=== PATIENT | male | born 1975 | race Caucasian/White ===

== ENCOUNTER 2020-10-30 17:31 | Inpatient (IN) | payer OTHER ==
[~2020-10-30] VITALS: Ht 172.7 cm; Wt 108.9 kg
[2020-10-30 17:38] VITALS: BP 167/11; BP 167/115
[2020-10-30 17:59] LABS: ABSOLUTE EOSINOPHILS 0.1 thou/uL (0.0-0.7); ABSOLUTE LYMPHOCYTES 3.7 thou/uL (0.8-5.3); ABSOLUTE MONOCYTES 1.4 thou/uL (0.0-1.2); ABSOLUTE NEUTROPHILS 7.7 thou/uL (1.6-8.1); BASOPHILS 0.4 %; EOSINOPHILS 0.6 %; HEMATOCRIT 37.8 % (42.0-52.0); HEMOGLOBIN 13.2 gm/dL (14.0-18.0); LYMPHOCYTES 28.7 %; MCH 31.5 pg (26.0-34.0); MCHC 34.9 g/dL (28.0-37.0); MCV 90.2 fL (80.0-100.0); MONOCYTES 10.8 %; MPV 8.2 fl. (7.2-11.1); NUCLEATED RBCS 0 /100WBC; PLATELET COUNT* 281 thou/uL (150-400); POLYS 59.5 %; RBC 4.19 mil/uL (4.50-6.00); WBC 12.9 thou/uL (4.0-11.0)
[2020-10-30 18:12] LABS: APTT 23.1 Seconds (25.0-31.3); CALCIUM 7.9 mg/dL (8.5-10.1); CREATININE 1.5 mg/dL (0.6-1.3); PROTIME 10.3 Seconds (9.20-11.50)
[2020-10-30 18:13] LABS: POTASSIUM 2.6 mmol/L (3.5-5.1)
[2020-10-30 18:17] LABS: ALBUMIN 3.2 g/dL (3.4-5.0); TOTAL BILIRUBIN 0.3 mg/dL (<0.1-1.0); TOTAL PROTEIN 6.2 g/dL (6.4-8.2)
[2020-10-31 00:30] VITALS: BP 195/94
[2020-10-31 03:15] LABS: HEMATOCRIT 29.5 % (42.0-52.0); MCH 31.5 pg (26.0-34.0); MPV 7.5 fl. (7.2-11.1); RBC 3.28 mil/uL (4.50-6.00); RDW-CV 13.5 % (10.5-14.5); WBC 10.1 thou/uL (4.0-11.0)
[2020-10-31 03:16] LABS: HEMOGLOBIN 10.3 gm/dL (14.0-18.0)
[2020-10-31 03:28] LABS: CALCIUM 7.7 mg/dL (8.5-10.1); CREATININE 1.4 mg/dL (0.6-1.3); POTASSIUM 3.3 mmol/L (3.5-5.1)
[2020-10-31 04:30] VITALS: BP 193/106
[2020-10-31 05:32] LABS: URINE BILIRUBIN NEGATIVE (Negative); URINE BLOOD NEGATIVE (Negative); URINE CLARITY CLEAR; URINE COLOR YELLOW; URINE GLUCOSE-RANDOM NEGATIVE (Negative); URINE KETONES NEGATIVE (Negative); URINE LEUKOCYTES-REFLEX NEGATIVE (Negative); URINE NITRITE-REFLEX NEGATIVE (Negative); URINE PROTEIN 2+ (Negative); URINE SPECIFIC GRAVITY 1.025 (1.005-1.030); URINE UROBILINOGEN 0.2 E.U./dl (0.2-1.0)
[2020-10-31 06:13] LABS: AMORPHOUS URATES Few /LPF (None Seen); BACTERIA-REFLEX 1-9 Few /HPF (None Seen); HYALINE CASTS 4-10 Moderate /LPF (None Seen); MUCUS 0-3 Light strn/LPF (None Seen); SQUAMOUS 0-3 Few /LPF (0-3); URINE RBC 0-2 Rare /HPF (0-2); URINE WBC-REFLEX 0-5 Rare /HPF (0-5)
[2020-10-31 08:30] VITALS: BP 153/70
[2020-10-31 12:34] VITALS: BP 187/102
[2020-11-01 04:06] LABS: GLYCOHEMOGLOBIN (HGB A1C) 6.5 % (4.8-5.6)
--- NOTE | 2020-11-01 15:03 | EKG ---
[place] [address] ELECTROCARDIOGRAM REPORT Name: SHAILESH CALDERON Room: [address] IN [facility]#: [id number] Admission: 10/30/20 Attend Phys: Jose Kaiser Discharge: 10/31/20 Date of : 77 Date of Service: 10/30/20 174 Report #: [id number] THIS REPORT FOR: //name// [facility] ED Test Date: 2020-10-30 Test Time: 17:42:53 Pat Name: SHAILESH RUEDAAUSTEN Department: Room: [facility] Gender: M Manager Service Desk: MAGDALENA : 1975 Requested By: Ashlee Hollins Order Number: [id number] MD: Ronan Santiago Measurements Intervals [place] Rate: 73 P: 42 DE: 162 QRS: 23 QRSD: 110 T: 114 QT: 443 QTc: 489 Interpretive Statements Sinus rhythm Possible left atrial enlargement Repol abnrm suggests ischemia, lateral leads No previous ECG available for comparison Electronically Signed On 11-01-2020 15:03:16 ARCHITECTURAL MODELER by Ronan Santiago [email or web address] <ELECTRONICALLY SIGNED> By: Ronan Santiago MD, FAC 11/01/20 1503 1742 1742 Ronan Santiago MD, FAC /EPI
--- NOTE | 2020-11-03 19:30 | CON ---
[address] [address] CONSULTATION Name: SHAILESH CALDERON Room: [address] IN .[place].#: [id number] Admission: 10/30/20 Attend Phys: Lisbet Roland Discharge: 10/31/20 Date of : 77 Report #: [id number] THIS REPORT FOR: cc: FAM - No family physician/PCP FAM - No family physician/PCP ~ Wilfred Graff DO DATE OF SERVICE: 10/31/2020 GI CONSULTATION REFERRING PHYSICIAN: Anita Og MD REASON FOR CONSULTATION: Rectal bleeding. IMPRESSION: 1. Acute onset of overt hematochezia with abnormal CAT scan demonstrating colitis. 2. Chronic acid reflux. 3. Chronic hoarseness. 4. Elevated troponin of uncertain etiology with multiple risk factors for heart disease including uncontrolled hypertension, chronic tobacco use, obesity, probable diabetes, and family history of heart disease. 5. Fatty liver noted on CT scan secondary to obesity. RECOMMENDATIONS: 1. I have discussed with the patient the need for him to come into the hospital to get IV fluids and hydration. 2. He will also need to be seen by Cardiology to clear him because of his elevated troponin before consideration for endoscopic evaluation of his upper and lower GI tract. 3. If Cardiology gives us clearance for the same, we can proceed with bowel preparation and endoscopic evaluation of his upper and lower GI tract in the next 24-36 hours. I have discussed these plans with the patient as well and he is not sure that he wants to stay in the hospital. I told him that if he decided to leave, he would have to do this, he would be leaving AMA, as I do not recommend him to get this done as an outpatient given the severity of his complaints plus his anemia (hemoglobin of 10) plus elevated troponin with a need for cardiovascular evaluation. I am waiting for him to decide what he wants to do. HISTORY OF PRESENT ILLNESS: The patient is a very pleasant 45-year-old white male who really has no primary care provider, nor does he see a doctor on a regular basis, admitted number of years since the same, who presented to the emergency room with complaints of rectal bleeding, [place] [address] CONSULTATION Name: SHAILESH CALDERON Room: [address]#: [id number] Admission: 10/30/20 Attend Phys: Lisbet Roland Discharge: 10/31/20 Date of : 77 Report #: [id number] afternoon. He felt like he needs to go the bathroom and he went and had had bright red blood. He also had some episodes where he got lightheaded and dizzy and almost passed out. His or significant other said that he had abnormal seizure-like activity with almost loss of consciousness while he was on the toilet. He denied any complaints of any abdominal pain with this. He does not normally have any problem with his bowels or bowel frequency. He states he normally goes to the bathroom on a regular basis. He has no known family history of any forms of colitis. He has no family history of inflammatory bowel disease, colon polyps or colon cancer. He has never undergone previous studies of the same. He does have chronic gastro reflux, but not taking anything on a regular basis. He also has a very hoarse voice. With all these issues, he denied any complaints of any chest discomfort or chest pain. He does not have any exertional chest pain or dyspnea on exertion. 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 He does, however, have multiple risk factors for heart disease including uncontrolled hypertension, probable diabetes, probable hyperlipidemia and family history of heart disease with chronic tobacco use in excess of 2 packs a day. ALLERGIES: None. MEDICATIONS AT HOME: Include aspirin and Tylenol. He sometimes takes nonsteroidals. He has no prescription medications. PAST MEDICAL HISTORY: Significant for previous ankle injury for which he has had surgery for the same. He has otherwise not had any surgery. He has not had any followup with any primary care doctor for a number of years. SOCIAL HISTORY: The patient smokes in excess of 2 packs a day; drinks "too much alcohol," but he did not quantify. He denies any drug use. PHYSICAL EXAMINATION: GENERAL: Pleasant 45-year-old gentleman who is awake and alert. CARDIOPULMONARY: Revealed a regular rate and rhythm. LUNGS: Clear. ABDOMEN: Soft and not tender. No rebound or guarding noted. VITAL SIGNS: His blood pressure is 172/95, pulse is 81, respirations are 17, and temperature is noted 36.8. LABORATORY DATA: His laboratory tests from admission revealed a white count of 12.9, hemoglobin 13.2, platelet count of 281,000. This was yesterday afternoon at 1741. This morning at 3:00 a.m., with hydration, [place] [address] CONSULTATION Name: SHAILESH CALDERON Room: [address] IN [place].#: [id number] Admission: 10/30/20 Attend Phys: Lisbet Roland Discharge: 10/31/20 Date of : 77 Report #: [id number] down to 10.3 with a white count of 10.1 and platelet count of 170,000. His sodium is 138, potassium 3.3, chloride 104, bicarbonate is 27, his BUN is 14, creatinine 1.4. On admission, his creatinine was 1.5 with a GFR of only 51. Total bilirubin is 0.3, alkaline phosphatase 59, AST 26, ALT 48. His albumin is 3.2. The patient's initial troponin was only 0.07, but his second troponin at 0306 was 0.28. COVID testing is negative. His INR is 1.0. CT scan of the abdomen and pelvis performed yesterday revealed diffuse fatty infiltration of the liver. Otherwise, the liver, gallbladder, spleen, pancreas and adrenal glands are unremarkable. There is no evidence for bowel obstruction. To my eye, there appeared to be some inflammatory or at least bowel wall thickening of his colon, but I did not see any evidence for any obvious tumors or cancers. DISCUSSION: At the present time, the patient needs to come in the hospital, get hydrated, to be seen by Cardiology for preprocedure evaluation and then endoscopic evaluation of his upper and lower GI tract. We will wait to see if he decides he is going to do so. I told him that this should not be done as an outpatient because he needed to be seen by Cardiology beforehand. <ELECTRONICALLY SIGNED> By: Wilfred Graff DO 11/03/20 1930 1205 DO sukhdev Barone
== END 2020-10-31 12:34 | disposition left against medical advice (07) | DRG 377 ==
LOC: M.ERS 17:31 → M.TBA-ER 19:51
PROVIDERS: Family Medicine; Physician Assistant; ADMIT Internal Medicine; ATTEND Internal Medicine
DX: K92.1 Melena (principal); N17.0 Acute kidney failure with tubular necrosis; R77.8 Other specified abnormalities of plasma proteins; I95.1 Orthostatic hypotension; D72.829 Elevated white blood cell count, unspecified; E87.6 Hypokalemia; R73.9 Hyperglycemia, unspecified; E66.9 Obesity, unspecified; R56.9 Unspecified convulsions; K76.0 Fatty (change of) liver, not elsewhere classified; Z20.822 Contact with and (suspected) exposure to COVID-19; Z53.29 Procedure and treatment not carried out because of patient's decision for other reasons; Z79.82 Long term (current) use of aspirin; Z79.899 Other long term (current) drug therapy; Z68.36 Body mass index [BMI] 36.0-36.9, adult

== ENCOUNTER 2021-05-13 15:43 | Emergency (ER) | payer OTHER ==
[~2021-05-13] VITALS: Ht 170.2 cm; Wt 104.3 kg
[2021-05-13 16:25] LABS: HEMATOCRIT 42.4 % (42.0-52.0); HEMOGLOBIN 14.3 gm/dL (14.0-18.0); MCH 28.5 pg (26.0-34.0); MCHC 33.6 g/dL (28.0-37.0); MCV 84.8 fL (80.0-100.0); NUCLEATED RBCS 0 /100WBC; PLATELET COUNT* 173 thou/uL (150-400); RDW-CV 14.8 % (10.5-14.5); WBC 8.4 thou/uL (4.0-11.0)
[2021-05-13 16:32] LABS: CALCIUM 8.6 mg/dL (8.5-10.1); CREATININE 1.7 mg/dL (0.6-1.3)
[2021-05-13 16:37] LABS: ALBUMIN 3.7 g/dL (3.4-5.0); TOTAL BILIRUBIN 0.4 mg/dL (<0.1-1.0); TOTAL PROTEIN 7.8 g/dL (6.4-8.2)
[2021-05-13 16:38] LABS: POTASSIUM 2.8 mmol/L (3.5-5.1)
[2021-05-13 16:48] LABS: ABSOLUTE LYMPHOCYTES 1.7 thou/uL (0.8-5.3); ABSOLUTE MONOCYTES 0.5 thou/uL (0.0-1.2); ABSOLUTE NEUTROPHILS 6.2 thou/uL (1.6-8.1); PLATELET ESTIMATE ADEQUATE
--- NOTE | 2021-05-13 16:54 | EKG ---
[place] [address] ELECTROCARDIOGRAM REPORT Name: SHAILESH CALDERON Room: [facility]#: [id number] Admission: 05/13/21 Attend Phys: Discharge: Date of : 77 Date of Service: 05/13/21 1606 Report #: [id number] THIS REPORT FOR: //name// [facility] ED Test Date: 2021-05-13 Test Time: 16:06:57 Pat Name: SHAILESH CALDERON Department: Room: Gender: [employer] Operator: : 1975 Requested By: Robert Marie Order Number: [id number] MD: Claudio Berg Measurements Intervals [place] Rate: 87 P: 58 FL: 165 QRS: 25 QRSD: 100 T: 147 QT: 395 QTc: 476 Interpretive Statements Sinus rhythm Left atrial enlargement LVH with secondary repolarization abnormality Anterior ST elevation, probably due to LVH Borderline prolonged QT interval Compared to ECG 10/30/2020 17:42:53 Left ventricular hypertrophy now present Electronically Signed On 05-13-2021 16:53:59 CDT by Claudio Berg [email or web address] <ELECTRONICALLY SIGNED> By: Claudio Berg MD, [facility] 05/13/21 1653 1606 1606 Claudio Berg MD, [facility] /EPI
[2021-05-13] MEDS ORDERED: LISINOPRIL20 MG PO (17:50)
[2021-05-13] MEDS ORDERED: POTASSIUM20 PO (17:50)
[2021-05-13 18:06] VITALS: BP 175/99
== END 2021-05-13 18:07 | disposition left against medical advice (07) ==
LOC: M.ERS 15:43
PROVIDERS: Emergency Medicine
DX: I16.0 Hypertensive urgency (principal); E87.6 Hypokalemia; N19 Unspecified kidney failure; F17.210 Nicotine dependence, cigarettes, uncomplicated

== ENCOUNTER → 2021-09-15 | Outpatient (CLI) | payer OTHER ==
[~2021-09-15] MED LIST: LISINOPRIL20 MG PO; POTASSIUM20 PO
--- NOTE | 2021-10-07 00:39 | SLEEP ---
[address] [address] SLEEP STUDY REPORT Name: SHAILESH CALDERON Room: [facility]#: [id number] Admission: 09/15/21 Attend Phys: Lizbeth Hernández RN Discharge: Date of : 77 Report #: [id number] THIS REPORT FOR: cc: Sagar Spence Vincent R. DO Pervez, Adeel MD ~ DATE OF STUDY: 09/15/2021 HOME SLEEP STUDY INTERPRETATION: Total duration of the study is 208 minutes. During this time duration, we recorded multiple sleep-related respiratory events. These included 47 obstructive apneas, 1 mixed apnea and 93 hypopneas. Overall, apnea-hypopnea index is 41.3. BODY POSITION DATA: Indicates that there is no supine sleep recorded. There are also multiple desaturations recorded. Overall, the patient spent 49 minutes below an O2 saturation of 90%, out of which 10 minutes were spent below an O2 saturation of 85%. Mean heart rate is 71. IMPRESSION: Severe obstructive sleep apnea with an apnea-hypopnea index of 41.3 with marked nocturnal hypoxemia as described above. RECOMMENDATIONS: Due to the presence of severe obstructive sleep apnea, I recommend proceeding to in-lab sleep study for positive airway pressure titration instead of the use of a CPAP auto-titrated device. This entire sleep study was reviewed by a board-certified sleep physician. <ELECTRONICALLY SIGNED> By: Mario Medina MD 10/07/21 0039 2255 [id number] Medina MD /javier
== END ==
LOC: M.PUL 11:30
PROVIDERS: ATTEND Nurse Practitioner
DX: G47.33 Obstructive sleep apnea (adult) (pediatric) (principal); R09.02 Hypoxemia; R40.0 Somnolence